=== PATIENT | female | born 1955 | race Caucasian/White ===

== ENCOUNTER 2018-07-18 01:30 | Inpatient (IN) | payer OTHER ==
[2018-07-18 01:53] VITALS: BMI 29.2
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
[2018-07-18] MEDS ORDERED: morphine CARPU-JECT 2 MG/1 ML DISP.SYRIN IVPUSH ONE (03:01)
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
[2018-07-18] MEDS ORDERED: DIPHTH,PERTUSS(ACELL),TET 0.5 ML DISP.SYRIN IM ONE (03:20)
[2018-07-18 03:40] LABS: BASO % 0.3 % (0-2.0); EOS % 0.8 % (0-4.5); HEMATOCRIT 43.9 % (32.4-45.2); HEMOGLOBIN 14.3 GM/dL (10.7-15.3); LYMPH % 11.7 % (8-40); MCH 28.6 pg (25.7-33.7); MCHC 32.6 g/dl (32.0-36.0); MEAN CELL VOLUME 87.8 fl (80-96); MEAN PLT VOLUME 9.9 fl (7.5-11.1); MONO % 5.8 % (3.8-10.2); NEUT % 81.4 % (42.8-82.8); PLATELET COUNT 166 K/MM3 (134-434); RBC 5.01 M/mm3 (3.60-5.2); RDW 13.8 % (11.6-15.6); WHITE BLOOD COUNT 12.7 K/mm3 (4.0-10.0)
[2018-07-18 03:56] LABS: INR 0.97 (0.83-1.09); PROTHROMBIN TIME (PATIENT) 11.4 SEC (9.7-13.0)
[2018-07-18] MEDS ORDERED: MORPHINE SULFATE 2 MG/ML VIAL ONE (04:01)
[2018-07-18 04:08] LABS: ALBUMIN 3.6 g/dl (3.4-5.0); ALK PHOS 148 U/L (45-117); ANION GAP 5 MMOL/L (8-16); BILIRUBIN,TOTAL 0.2 mg/dL (0.2-1); BLOOD UREA NITROGEN 24 mg/dL (7-18); CALCIUM 8.9 mg/dL (8.5-10.1); CHLORIDE 106 mmol/L (98-107); CO2 30 mmol/L (21-32); CREATININE 0.6 mg/dL (0.55-1.3); GLUCOSE,RANDOM 107 mg/dL (74-106); POTASSIUM 4.4 mmol/L (3.5-5.1); SGOT/AST 21 U/L (15-37); SGPT/ALT 26 U/L (13-61); SODIUM 141 mmol/L (136-145); TOT PROT 7.2 g/dl (6.4-8.2)
[2018-07-18] MEDS ORDERED: SULFAMETHOXAZOLE/TRIMETHOPRIM 800MG/160MG D.S. TABLET PO ONE (04:23)
[2018-07-18] MEDS ORDERED: BACITRACIN 15 GM TUBE TOPICAL OINTMENT TP ONE (04:23)
[2018-07-18] MEDS ORDERED: ONDANSETRON 4 MG/2 ML VIAL IVPUSH ONE (04:26)
[2018-07-18] MEDS ORDERED: ONDANSETRON 4 MG/2 ML VIAL ONE (04:31)
[2018-07-18] MEDS ORDERED: SULFAMETHOXAZOLE/TRIMETHOPRIM 800MG/160MG D.S. TABLET ONE (04:31)
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
[2018-07-18] MEDS ORDERED: amLODIPine BESYLATE 5 MG TABLET (FP) PO ONE (05:20)
[2018-07-18] MEDS ORDERED: amLODIPine BESYLATE 5 MG TABLET (FP) ONE (05:44)
[2018-07-18] MEDS: SODIUM CHLORIDE 0.45% 1,000 ML IV SCH (06:01)
[2018-07-18 06:22] LABS: URINE APPEARANCE CLEAR; URINE BILIRUBIN NEGATIVE (<2.0 mg/dL); URINE COLOR LTYELLOW; URINE GLUCOSE (UA) NEGATIVE (NEGATIVE); URINE KETONE NEGATIVE (NEGATIVE); URINE LEUK ESTERASE TRACE (NEGATIVE); URINE NITRITE NEGATIVE (NEGATIVE); URINE PROTEIN 2+ (NEGATIVE); URINE UROBILINOGEN NEGATIVE mg/dL (0.2-1.0)
[2018-07-18 06:29] LABS: EPI CELLS RARE /HPF (FEW); URINE MUCUS RARE
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
[2018-07-18 09:34] LABS: BASO % 0.5 % (0-2.0); EOS % 0.7 % (0-4.5); HEMATOCRIT 42.6 % (32.4-45.2); HEMOGLOBIN 13.6 GM/dL (10.7-15.3); LYMPH % 13.3 % (8-40); MCH 28.2 pg (25.7-33.7); MEAN CELL VOLUME 88.1 fl (80-96); MEAN PLT VOLUME 10.4 fl (7.5-11.1); MONO % 5.9 % (3.8-10.2); NEUT % 79.6 % (42.8-82.8); PLATELET COUNT 144 K/MM3 (134-434); RBC 4.83 M/mm3 (3.60-5.2); RDW 13.9 % (11.6-15.6); WHITE BLOOD COUNT 10.8 K/mm3 (4.0-10.0)
[2018-07-18] MEDS ORDERED: ENOXAPARIN NA (PORCINE) 40 MG/0.4 ML DISP.SYRIN SQ SCH (10:00)
[2018-07-18 10:15] LABS: ALBUMIN 3.3 g/dl (3.4-5.0); ALK PHOS 140 U/L (45-117); ANION GAP 7 MMOL/L (8-16); BILIRUBIN,TOTAL 0.3 mg/dL (0.2-1); BLOOD UREA NITROGEN 18 mg/dL (7-18); CALCIUM 8.8 mg/dL (8.5-10.1); CHLORIDE 106 mmol/L (98-107); CO2 29 mmol/L (21-32); CREATININE 0.6 mg/dL (0.55-1.3); GLUCOSE,RANDOM 119 mg/dL (74-106); MAGNESIUM 1.9 mg/dL (1.8-2.4); PHOSPHOROUS 3.8 mg/dL (2.5-4.9); POTASSIUM 4.2 mmol/L (3.5-5.1); SGOT/AST 22 U/L (15-37); SGPT/ALT 25 U/L (13-61); SODIUM 141 mmol/L (136-145); TOT PROT 6.6 g/dl (6.4-8.2)
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
[2018-07-18] MEDS ORDERED: ALBUTEROL SO4 8 GM HFA INHALER IH PRN ×2 (11:12→11:58)
[2018-07-18] MEDS ORDERED: ARTIFICIAL TEARS (POLYVINYL ALCOHOL) OPTH DROPS OU PRN (13:52)
[2018-07-18] MEDS: ACETAMINOPHEN 325 MG TABLET (FP) PO PRN (16:30)
[2018-07-18] MEDS ORDERED: MORPHINE SULFATE 2 MG/ML VIAL IVPUSH PRN (16:53)
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
[2018-07-18] MEDS: BUDESONIDE/FORMETEROL FUMARATE 160/4.5 mcg INHALER IH SCH (23:30)
[2018-07-19] MEDS: ACETAMINOPHEN 325 MG TABLET (FP) PO PRN ×2 (02:11→11:47)
[2018-07-19] MEDS: SODIUM CHLORIDE 0.45% 1,000 ML IV SCH ×2 (02:12→06:12)
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
[2018-07-19] MEDS: LOSARTAN POTASSIUM 50 MG TABLET (FP) PO SCH (11:47)
[2018-07-19] MEDS: RANITIDINE HCL 150 MG TABLET (FP) PO SCH (11:47)
[2018-07-19] MEDS: BUDESONIDE/FORMETEROL FUMARATE 160/4.5 mcg INHALER IH SCH ×2 (11:51→21:56)
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
[2018-07-19] MEDS: ENOXAPARIN NA (PORCINE) 40 MG/0.4 ML DISP.SYRIN SQ SCH (15:54)
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
[2018-07-20 07:15] LABS: BASO % 0.5 % (0-2.0); HEMOGLOBIN 13.4 GM/dL (10.7-15.3); LYMPH % 21.8 % (8-40); MCH 28.4 pg (25.7-33.7); MCHC 32.6 g/dl (32.0-36.0); MEAN CELL VOLUME 87.2 fl (80-96); MEAN PLT VOLUME 10.2 fl (7.5-11.1); MONO % 9.7 % (3.8-10.2); PLATELET COUNT 135 K/MM3 (134-434); RDW 14.1 % (11.6-15.6); WHITE BLOOD COUNT 7.3 K/mm3 (4.0-10.0)
[2018-07-20 07:40] LABS: ALBUMIN 2.8 g/dl (3.4-5.0); ALK PHOS 140 U/L (45-117); ANION GAP 6 MMOL/L (8-16); BILIRUBIN,TOTAL 0.8 mg/dL (0.2-1); BLOOD UREA NITROGEN 12 mg/dL (7-18); CALCIUM 8.5 mg/dL (8.5-10.1); CHLORIDE 107 mmol/L (98-107); CO2 27 mmol/L (21-32); CREATININE 0.5 mg/dL (0.55-1.3); GLUCOSE,RANDOM 84 mg/dL (74-106); MAGNESIUM 2.2 mg/dL (1.8-2.4); PHOSPHOROUS 3.4 mg/dL (2.5-4.9); POTASSIUM 3.9 mmol/L (3.5-5.1); SGOT/AST 28 U/L (15-37); SGPT/ALT 32 U/L (13-61); SODIUM 140 mmol/L (136-145); TOT PROT 6.2 g/dl (6.4-8.2)
[2018-07-20] MEDS: ACETAMINOPHEN 325 MG TABLET (FP) PO PRN (09:29)
[2018-07-20] MEDS: LOSARTAN POTASSIUM 50 MG TABLET (FP) PO SCH (09:30)
[2018-07-20] MEDS: RANITIDINE HCL 150 MG TABLET (FP) PO SCH (09:30)
[2018-07-20] MEDS: ENOXAPARIN NA (PORCINE) 40 MG/0.4 ML DISP.SYRIN SQ SCH (09:30)
[2018-07-20] MEDS: BUDESONIDE/FORMETEROL FUMARATE 160/4.5 mcg INHALER IH SCH ×2 (11:39→22:05)
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
[2018-07-21] MEDS: RANITIDINE HCL 150 MG TABLET (FP) PO SCH (09:42)
[2018-07-21] MEDS: BUDESONIDE/FORMETEROL FUMARATE 160/4.5 mcg INHALER IH SCH ×2 (09:42→23:01)
[2018-07-21] MEDS: ENOXAPARIN NA (PORCINE) 40 MG/0.4 ML DISP.SYRIN SQ SCH (09:42)
[2018-07-21] MEDS: LOSARTAN POTASSIUM 50 MG TABLET (FP) PO SCH (09:42)
[2018-07-21] MEDS: ACETAMINOPHEN 325 MG TABLET (FP) PO PRN (12:08)
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
[2018-07-22] MEDS: ACETAMINOPHEN 325 MG TABLET (FP) PO PRN (05:39)
[2018-07-22] MEDS: ENOXAPARIN NA (PORCINE) 40 MG/0.4 ML DISP.SYRIN SQ SCH (10:34)
[2018-07-22] MEDS: BUDESONIDE/FORMETEROL FUMARATE 160/4.5 mcg INHALER IH SCH (10:34)
[2018-07-22] MEDS: LOSARTAN POTASSIUM 50 MG TABLET (FP) PO SCH (10:35)
[2018-07-22] MEDS: RANITIDINE HCL 150 MG TABLET (FP) PO SCH (10:35)
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
[2018-07-22 13:47] VITALS: BP 112/68; PULSE 75; TEMP 97.6
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
== END 2018-07-22 16:40 | DRG 342 ==
LOC: JER 01:30 → JERBED 04:07 → J7W 07-19 01:35
PROVIDERS: ADMIT Internal Medicine; ATTEND Internal Medicine
PROC: 2W3RXYZ Immobilization of Left Lower Leg using Other Device (ICD-10-PCS; principal; 2018-07-19)
DX: S82.402A Unspecified fracture of shaft of left fibula, initial encounter for closed fracture (principal); S20.412A Abrasion of left back wall of thorax, initial encounter; S30.811A Abrasion of abdominal wall, initial encounter; S90.512A Abrasion, left ankle, initial encounter; S40.212A Abrasion of left shoulder, initial encounter; S50.312A Abrasion of left elbow, initial encounter; V03.09XA Pedestrian with other conveyance injured in collision with car, pick-up truck or van in nontraffic accident, initial encounter; Y92.488 Other paved roadways as the place of occurrence of the external cause; I10 Essential (primary) hypertension; J45.909 Unspecified asthma, uncomplicated; E78.00 Pure hypercholesterolemia, unspecified
CPT/HCPCS: 36415; 71101-TC-FY; 72170-TC-FY; 73552-TC-LT-FY; 73560-TC-LT-FY; 73560-TC-RT-FY; 73590-TC-LT-FY; 73610-TC-LT-FY; 73630-TC-LT; 80053; 81003; 81015; 82550; 83735; 84100; 85025; 85610; 85730; 86850; 86900; 86901; 90715; 94010; 97116-GP; 97161-GP; 99284-25